=== PATIENT | female | born 1960 | race Caucasian/White ===

== ENCOUNTER 2017-04-10 19:35 | Emergency (ER) | payer OTHER ==
--- NOTE | 2017-04-10 19:37 | ED Physician Documentation ---
Upper Respiratory Symptoms - HISTORIAN Historian: patient, spouse - HPI Stated Complaint: cough, fever, N/V/D Chief Complaint: Fever Onset: days ago (2) Duration: constant Context: same sx (works at a daycare ). denies: recent foreign travel, insect bite(s), tick(s), multiple patients Associated Symptoms: fever, chills, sweating, sinus pain, productive cough, shortness of breath. denies: chest pain, hurts to breathe Worsened by Deep Breath: Yes Further Comments: yes (She reports symptoms started two days ago, she works at a daycare. she has had nausea and vomiting since this am. She has increased fatigue) - ROS CONST/EYES: weakness CVS/RESP: shortness of breath LYMPH: denies: ankle swelling GI/: vomiting, nausea. denies: problems urinating NEURO/PSYCH: denies: fainting, dizziness MS/SKIN: muscle aches. denies: rash - PAST HX Lung Disease: asthma, other (diabetes ) Surgeries/Procedures: other Immunizations: referred to PCP Allergies/Adverse Reactions: Allergies Allergy/AdvReac Type Severity Reaction Status Date / Time cephalexin monohydrate AdvReac Rash Verified 04/10/17 20:41 [From Keflex] Home Medications: Ambulatory Orders Medication Instructions Recorded Fluticasone/Salmeterol [Advair 1 each INH DAILY 07/06/13 250-50 Diskus] Lisinopril/Hydrochlorothiazide 1 each PO D 07/06/13 [Lisinopril-Hctz 10-12.5 mg Tab] Metformin HCl ER [Glucophage XR] 1,000 mg PO DAILY 07/06/13 - SOCIAL HX Smoking History: non-smoker Alcohol Use: none Drug Use: none - FAMILY HX Family History: none - VITAL SIGNS Vital Signs: Vital Signs Temp Pulse Resp BP Pulse Ox 98.8 F 105 H 26 H 139/74 93 04/10/17 19:36 04/10/17 19:36 04/10/17 19:36 04/10/17 19:36 04/10/17 19:36 - REVIEWED ASSESSMENTS Nursing Assessment Reviewed: Yes Vitals Reviewed: Yes Progress - Progress Progress: 2100: still complaining of nausea and generalized abdominal pain. DG 2132: She states that her nausea is improved as well as abdominal pain . Discussed results with her and her . She will need to follow up and notify Dr Sanchez in am about CT results for further work up . DG ED Results Lab/Radiology - Lab Results Lab Results: Lab Results 04/10/17 04/10/17 04/10/17 21:09 20:01 20:01 WBC 6.60 K/ul K/ul (4.00-12.00) RBC 4.97 M/ul M/ul (3.90-5.20) Hgb 15.6 g/dL g/dL (12.0-16.0) Hct 45.2 % % (34.5-46.5) MCV 90.9 fl fl (80.0-100.0) MCH 31.4 pg pg (28.0-34.0) MCHC 34.5 g/dL g/dL (30.0-36.0) RDW 12.6 % % (11.3-14.3) Plt Count 193 K/mm3 K/mm3 (130-400) Sodium 133 mmol/L L mmol/L (136-145) Potassium 4.2 mmol/L mmol/L (3.5-5.1) Chloride 95 mmol/L L mmol/L (98-107) Carbon Dioxide 23 mmol/L mmol/L (22-30) BUN 19 mg/dL H mg/dL (7-17) Creatinine 0.80 mg/dL mg/dL (0.52-1.04) Estimated Creat Clear 117 Est GFR ( Amer) > 60 (60 - ) Est GFR (Non-Af Amer) > 60 (60 - ) Glucose 278 mg/dL H mg/dL (74-106) Calcium 9.0 mg/dL mg/dL (8.4-10.2) Total Bilirubin 0.7 mg/dL mg/dL (0.2-1.3) AST 96 U/L H U/L (15-46) ALT 103 U/L H U/L (13-69) Alkaline Phosphatase 71 U/L U/L (38-126) Total Protein 7.9 g/dL g/dL (6.3-8.2) Albumin 4.3 g/dL g/dL (3.5-5.0) Lipase 113 U/L U/L (23-300) - Radiology Radiology Impressions: PA and lateral chest CLINICAL HISTORY: Cough. Ache for 2 days. FINDINGS: Examination of the chest in PA and lateral views with no prior film for comparison demonstrates the lungs to be clear. Cardiovascular and mediastinal silhouettes are within normal limits. The bony thorax is intact. IMPRESSION: No active disease. Electronically signed on Apr 10, 2017 8:48:00 PM BELL STAFF by: Sravan Durbin - Orders Orders: ED Orders Category Date Time Status IV Started NOW Care 04/10/17 19:45 Active CHEST 2 VIEW [CHEST P.A.&LAT 2 VIEWS] [RAD] Stat Exams 04/10/17 19:[address] ABD & PELVIS W/O CON Stat Exams 04/10/17 Taken CBC/PLATELET/DIFF Stat Lab 04/10/17 20:01 Completed CMP Stat Lab 04/10/17 20:01 Completed INFLUENZA A&B Stat Lab 04/10/17 19:45 Ordered LIPASE Stat Lab 04/10/17 21:09 Completed 0.9 % Sodium Chloride [Normal Saline] 1,000 ml Med 04/10/17 19:55 Discontinued IV Q1H 0.9 % Sodium Chloride [Sodium Chloride] 100 ml Med 04/10/17 20:49 Discontinued IV .STK-MED Ipratropium/Albuterol Sulfate [Duoneb] Med 04/10/17 20:06 Discontinued 3 ml NEB NOW ONE Ketorolac Tromethamine [Toradol] Med 04/10/17 19:54 Discontinued 30 mg IVP NOW ONE Ondansetron HCl/Pf [Zofran 4 mg/2 ml] Med 04/10/17 19:56 Discontinued 4 mg .ROUTE .STK-MED ONE Ondansetron HCl/Pf [Zofran 4 mg/2 ml] Med 04/10/17 19:55 Discontinued 4 mg IVP NOW ONE Promethazine HCl [Phenergan] Med 04/10/17 20:49 Discontinued 25 mg .ROUTE .STK-MED ONE Promethazine HCl [Phenergan] Med 04/10/17 20:47 Discontinued 25 mg IM NOW ONE Promethazine HCl [Phenergan] Med 04/10/17 21:32 Discontinued 50 mg PO .STK-MED ONE Promethazine HCl [Phenergan] Med 04/10/17 21:37 Discontinued 50 mg PO D ONE Promethazine HCl [Phenergan] 25 mg Med 01/08/18 21:07 Discontinued 0.9 % Sodium Chloride [Sodium Chloride] 50 ml IV NOW Oxygen Daily Oxygen 04/10/17 20:15 Ordered Upper Respiratory Symptoms - EXAM General Appearance: alert, mild distress EENT: eyes nml inspection Neck: normal inspection Respiratory: respiratory distress (mild ), decreased air movement, wheezes Abdomen: non-tender, no organomegaly, nml bowel sounds CVS: reg rate & rhythm, heart sounds normal, equal pulses, no murmur Skin: color nml, no rash, warm,dry Extremities: non-tender, normal range of motion, no edema Neuro/Psych: oriented x3, neuro intact, mood/affect nml Discharge Clincal Impression: Nausea Referrals: Primary Doctor,No [Primary Care Provider] - 2 Days Comments: Increase fluids Watch blood sugar Follow up with Dr Sanchez in am on CT and fatty liver disease Return to ER for any changes. or concerns Condition: Stable Disposition: 01 HOME, SELF-CARE Decision to Admit: NO Date of Decison to Admit: 04/10/17 Decision Time: 21:35
[2017-04-10] MEDS ORDERED: KETOROLAC TROMETHAMINE 30 MG/1ML VIAL IVP ONE (19:54)
[2017-04-10] MEDS ORDERED: 0.9 % SODIUM CHLORIDE 1,000 ML IV ONE (19:55)
[2017-04-10] MEDS ORDERED: ONDANSETRON HCL/PF 4 MG/ 2ML VIAL IVP ONE (19:55)
[2017-04-10] MEDS ORDERED: ONDANSETRON HCL/PF 4 MG/ 2ML VIAL ONE (19:56)
[2017-04-10] MEDS ORDERED: IPRATROPIUM/ALBUTEROL SULFATE 3 ML AMPUL.NEB NEB ONE (20:06)
[2017-04-10 20:19] LABS: MEAN CORPUSCULAR HEMOGLOBIN 31.4 pg (28.0-34.0); MEAN CORPUSCULAR VOLUME 90.9 fl (80.0-100.0)
[2017-04-10 20:20] LABS: eGFR (African) > 60; eGFR (Non-African) > 60
[2017-04-10] MEDS ORDERED: PROMETHAZINE HCL 25 MG/ML VIAL IM ONE (20:47)
[2017-04-10] MEDS ORDERED: PROMETHAZINE HCL 25 MG/ML VIAL ONE (20:49)
[2017-04-10] MEDS ORDERED: 0.9 % SODIUM CHLORIDE 100 ML IV ONE (20:49)
[2017-04-10] MEDS ORDERED: PROMETHAZINE HCL 25 MG in 0.9 % SODIUM CHLORIDE 50 ML IV ONE (21:07)
[2017-04-10] MEDS ORDERED: PROMETHAZINE HCL 25 MG TABLET PO ONE ×2 (21:32→21:37)
[2017-04-10 21:57] VITALS: BP 115/60
--- NOTE | 2017-04-11 06:07 | Diagnostic Imaging Report ---
MATT BOWLING [facility] [address] [facility] [address] [place] [facility] [address] [place], [place]. [address] Report Submission Date: Apr 10, 2017 8:48:00 PM CATALYTIC CASE OPERATOR Patient Study Name: LAWRENCE STANTON Date: Apr 10, 2017 8:36:29 PM CATALYTIC CASE OPERATOR Modality Type: CR Gender: F Description: CHEST : 62 Institution: [facility] Physician: MATT BOWLING PA and lateral chest CLINICAL HISTORY: Cough. Ache for 2 days. FINDINGS: Examination of the chest in PA and lateral views with no prior film for comparison demonstrates the lungs to be clear. Cardiovascular and mediastinal silhouettes are within normal limits. The bony thorax is intact. IMPRESSION: No active disease. Electronically signed on Apr 10, 2017 8:48:00 PM CATALYTIC CASE OPERATOR by: Sravan THAYER
--- NOTE | 2017-04-11 06:08 | Diagnostic Imaging Report ---
MATT BOWLING [facility] [address] [facility] [address] [place], [place]. [address] Report Submission Date: Apr 10, 2017 9:22:03 PM DUST COLLECTOR OPERATOR Patient Study Name: LAWRENCE STANTON Date: Apr 10, 2017 8:58:29 PM DUST COLLECTOR OPERATOR Modality Type: CT\SR Gender: F Description: CT ABD & PELVIS W/O CO : 62 Institution: [facility] Physician: MATT BOWLING CT of the abdomen and pelvis without contrast CLINICAL HISTORY: Lower abdominal pain. TECHNIQUE: CT of the abdomen and pelvis is performed without oral or intravenous administration contrast. Sagittal and coronal reconstructions are performed by the technologist. FINDINGS: Visualized lung bases are clear. The liver is diffusely hypodense consistent with hepatic steatosis. Multiple calcified granulomata are seen in the spleen. Gallbladder is surgically absent. There is no pancreatic or adrenal abnormality. The kidneys are of normal size, shape and position. Small calcified splenic artery aneurysm measures 1.5 cm in diameter. Vascular calcification is present in the abdominal aorta without evidence of aneurysm. There is no retroperitoneal mass or significant adenopathy. The appendix is not identified, but there is no evidence of appendicitis. Bladder is unremarkable. There is a cystic structure superior to the bladder and uterus lateralizing to the right measuring 10.6 x 9.0 cm in cross-sectional diameter consistent with ovarian cyst or cystic neoplasm. Left ovarian follicle is demonstrated. The uterus is within normal limits. There is no free fluid in the pelvis or abdomen. IMPRESSION: 10.6 cm cystic mass in the right pelvis related to the right ovary. Rule out cystic neoplasm. Left ovarian follicle. The appendix is not identified. Hepatic steatosis. Vascular calcification. Electronically signed on Apr 10, 2017 9:22:03 PM DUST COLLECTOR OPERATOR by: Sravan THAYER
[2017-04-11 09:31] LABS: MONOCYTES % 12 % (0-11); SEGMENTED NEUTROPHILS % 68 % (39-79)
== END 2017-04-10 21:55 | disposition home or self-care (01) ==
LOC: ED 19:35
DX: R11.2 Nausea with vomiting, unspecified (principal); R10.30 Lower abdominal pain, unspecified
CPT/HCPCS: 71020; 74176; 80053; 82150; 83690; 85025; 87400; 94640; 96361; 96374; 96375; 99283; J1885; J2405; J2550; J7030; S1016

== ENCOUNTER 2017-06-01 07:56 | Outpatient (CLI) | payer OTHER ==
--- NOTE | 2017-06-01 09:58 | Diagnostic Imaging Report ---
GEORGETTE CALDERON (CERTIFIED HOME HEALTH AIDE) [facility] [address] [facility] [address] [address] Report Submission Date: Jun 01, 2017 8:29:00 AM WOOD DIE MAKER Patient Study Name: LAWRENCE STANTON Date: Jun 01, 2017 8:04:32 AM WOOD DIE MAKER Modality Type: DX Gender: F Description: PELVIS : 62 Institution: [facility] Physician: GEORGETTE CALDERON (CERTIFIED HOME HEALTH AIDE) Examination: Plain film pelvis/left hip History: LEFT HIP W/ PELVIS, LEFT HIP PAIN X3 WEEKS, NO KNOWN INJURY (Hx) Comparison exams: None provided Findings: 3 views of the pelvis and left hip demonstrate normal cortical margins. No fracture no dislocation. Mild acetabular spurring. Lumbar spine osteophytes. No soft tissue abnormality. Impression: Degenerative spurring. No acute appearing osseous abnormality. Electronically signed on Jun 01, 2017 8:29:00 AM WOOD DIE MAKER by: Jamie THAYER
== END 2017-06-01 07:59 ==
LOC: RAD 07:56
PROVIDERS: ATTEND Nurse Practitioner Family
DX: M25.552 Pain in left hip (principal)

== ENCOUNTER 2018-03-07 22:20 | Emergency (ER) | payer MEDICAID, OTHER ==
--- NOTE | 2018-03-07 22:25 | ED Physician Documentation ---
Hand Injury - HISTORIAN Historian: patient - HPI Stated Complaint: right hand pain Chief Complaint: Hand Injury Additional Information: Patient presents to ED after getting right hand shut in car door just prior to arrival. She denies nausea or vomiting. Onset: just prior to arrival Where: home Duration: persistent since Context: crush (shut hand in car door) Location of Injury: R hand Modifying Factors: pain on movement - ROS CONST: no problems GI/: denies: nausea, vomiting NEURO: none CVS/RESP: none LNMP: post-menopausal EYES/ENT: none MS/SKIN/LYMPH: none - PAST HX Past History: Rt handed Allergies/Adverse Reactions: Allergies Allergy/AdvReac Type Severity Reaction Status Date / Time cephalexin monohydrate AdvReac Rash Verified 03/07/18 22:28 [From Keflex] Home Medications: Ambulatory Orders Medication Instructions Recorded Fluticasone/Salmeterol [Advair 1 each INH DAILY 07/06/13 250-50 Diskus] Lisinopril/Hydrochlorothiazide 1 each PO D 07/06/13 [Lisinopril-Hctz 10-12.5 mg Tab] Metformin HCl ER [Glucophage XR] 1,000 mg PO DAILY 07/06/13 Glipizide 1 tab PO DAILY 03/07/18 HYDROcodone /APAP 5/325 [[place] 1 each PO QID PRN #12 tablet 03/07/18 5/325] Insulin Glargine,Hum.rec.anlog 22 units SQ DAILY 03/07/18 [Lantus] - SOCIAL HX Smoking History: non-smoker Alcohol Use: none Drug Use: none - FAMILY HX Family History: none - VITAL SIGNS Vital Signs: Vital Signs Temp Pulse Resp BP Pulse Ox 115/60 04/10/17 21:55 - REVIEWED ASSESSMENTS Nursing Assessment Reviewed: Yes Vitals Reviewed: Yes ED Results Lab/Radiology - Orders Orders: ED Orders Category Date Time Status HAND 3 VIEWS OR MORE [RAD] Stat Exams 03/07/18 Ordered Hand Injury Physical Exam - Exam General Appearance: no acute distress, alert Hand: tenderness, bony tenderness, swelling, ecchymosis, limited ROM Wrist: normal inspection Neuro: sensation nml, motor nml Vascular: no vascular compromise Tendons: tendon function nml Forearm/Elbow/Arm: uninjured above wrist Skin: warm/dry, normal color Head/ENT: nml inspection Neck/Back: nml inspection Resp/CVS: chest non-tender, breath sounds nml, heart sounds nml Abdomen: non-tender, nml bowel sounds Discharge Clincal Impression: Injury of right hand Qualifiers: Encounter type: initial encounter Qualified Code(s): S69.91XA - Unspecified injury of right wrist, hand and finger(s), initial encounter Prescriptions: HYDROcodone /APAP 5/325 [[place] 5/325] 1 each PO QID PRN #12 tablet PRN Reason: Pain Referrals: Brett Mora MD [Primary Care Provider] - 2 Days Additional Instructions: 1. Apply ice to area as much as possible 2. You may take Ibuprofen as needed in addition to the pain medication pre scribed 3. Return to ED if hand becomes blue or you lose sensation in the hand 4. Follow up with PCP within 1 week. Condition: Stable Disposition: 01 HOME, SELF-CARE Decision to Admit: NO Date of Decison to Admit: 03/07/18 Decision Time: 22:51
[2018-03-07 22:31] VITALS: BP 133/84
[2018-03-07] MEDS ORDERED: HYDROcodone /APAP 5/325 1 EACH TABLET PO ONE (22:35)
[2018-03-07] MEDS ORDERED: HYDROcodone /APAP 5/325 1 EACH TABLET ONE (22:36)
--- NOTE | 2018-03-08 03:49 | Diagnostic Imaging Report ---
CORAZON SCHULZ [facility] [address] [facility] [address] [place] [address]. [address] Report Submission Date: Mar 07, 2018 10:47:05 PM LAMP SHADE JOINER Patient Study Name: LAWRENCE STANTON Date: Mar 07, 2018 10:19:35 PM LAMP SHADE JOINER Modality Type: DX Gender: F Description: UPPER EXTREMITY : 62 Institution: [facility] Physician: CORAZON SCHULZ Three views of the right hand Clinical history: Injury in a car door today. Pain. Findings: Examination right hand in palmar, lateral and oblique views demonstrates degenerative changes with slight narrowing of the interphalangeal joints worse distally. There is no evident fracture and no lytic or blastic lesion. Mild narrowing of the radiocarpal joint. Impression: 1. Mild degenerative changes. 2. No fracture. Electronically signed on Mar 07, 2018 10:47:05 PM LAMP SHADE JOINER by: Sravan THAYER
== END 2018-03-07 23:00 | disposition home or self-care (01) ==
LOC: ED 22:20
DX: S69.91XA Unspecified injury of right wrist, hand and finger(s), initial encounter (principal); W23.0XXA Caught, crushed, jammed, or pinched between moving objects, initial encounter; Y93.89 Activity, other specified; Y92.009 Unspecified place in unspecified non-institutional (private) residence as the place of occurrence of the external cause
CPT/HCPCS: 73130; 99282; 99283; A9270

== ENCOUNTER 2018-12-22 01:07 | Emergency (ER) | payer MEDICAID, OTHER ==
--- NOTE | 2018-12-22 01:34 | ED Physician Documentation ---
General Adult - HISTORIAN Historian: patient - HPI Stated Complaint: "I had a port placed today at [facility] and it has opened up" Chief Complaint: General Adult Additional Information: Patient presents to ED with dehiscence of surgical wound. Patient was directed by surgeon at [facility] [facility] to come here to have the wound evaluated. She had a port placed today at [facility] [facility]. The surgical wound was closed with surgical glue and it has opened. The wound measures Onset: hours (4) Timing: still present Severity: moderate - ROS CONST: denies: fever EYES/ENT: none CVS/RESP: denies: chest pain, shortness of breath GI/: denies: vomiting, nausea MS/SKIN/LYMPH: none NEURO/PSYCH: denies: headache - PAST HX Past History: other (breast cancer) Other History: none Surgeries/Procedures: none Allergies/Adverse Reactions: Allergies Allergy/AdvReac Type Severity Reaction Status Date / Time sulfamethoxazole Allergy Mild Verified 12/22/18 01:29 [From Bactrim] trimethoprim [From Bactrim] Allergy Mild Verified 12/22/18 01:29 cephalexin monohydrate AdvReac Rash Verified 03/07/18 22:28 [From Keflex] Home Medications: Ambulatory Orders Medication Instructions Recorded Fluticasone Propion/Salmeterol 1 each INH DAILY 07/06/13 [Advair 250-50 Diskus] Lisinopril/Hydrochlorothiazide 1 each PO D 07/06/13 [Lisinopril-Hctz 10-12.5 mg Tab] Metformin HCl ER [Glucophage XR] 1,000 mg PO DAILY 07/06/13 Glipizide 1 tab PO DAILY 03/07/18 HYDROcodone /APAP 5/325 [[place] 1 each PO QID PRN #12 tablet 03/07/18 5/325] Insulin Glargine,Hum.rec.anlog 22 units SQ DAILY 03/07/18 [Lantus] - SOCIAL HX Smoking History: non-smoker Alcohol Use: none Drug Use: none - FAMILY HX Family History: Yes - VITAL SIGNS Vital Signs: Vital Signs Temp Pulse Resp BP Pulse Ox 98.4 F 90 16 110/74 98 12/22/18 01:23 12/22/18 01:23 12/22/18 01:23 12/22/18 01:12/22/18 01:23 - REVIEWED ASSESSMENTS Nursing Assessment Reviewed: Yes General Adult Physical Exam - PHYSICAL EXAM GENERAL APPEARANCE: no distress EENT: CHRISS NECK: normal inspection RESPIRATORY: no resp distress CVS: reg rate & rhythm, heart sounds normal ABDOMEN: soft BACK: normal inspection SKIN: warm/dry, other (3 cm incision open right chest just below clavicle. No signs of infection) EXTREMITIES: non-tender NEURO: oriented X3, mood/affect nml Discharge Clincal Impression: Surgical wound dehiscence Qualifiers: Encounter type: initial encounter Qualified Code(s): T81.31XA - Disruption of external operation (surgical) wound, not elsewhere classified, initial encounter Referrals: Brett Mora MD [Primary Care Provider] - 2 Days Comments: Patient left AMA to go to [facility] ER by private vehicle. Condition: Stable Disposition: AGAINST MEDICAL ADVICE Decision to Admit: NO Date of Decison to Admit: 12/22/18 Decision Time: 01:40
[2018-12-22 02:05] VITALS: BP 112/72
== END 2018-12-22 01:50 | disposition left against medical advice (07) ==
LOC: ED 01:07
DX: T81.31XA Disruption of external operation (surgical) wound, not elsewhere classified, initial encounter (principal)
CPT/HCPCS: 99281; 99282